=== PATIENT | female | born 1950 | race Caucasian/White ===

== ENCOUNTER 2016-11-08 08:12 | Outpatient (CLI) | payer OTHER, BC ==
[~2016-11-08 08:12] MED LIST: ALPRAZOLAM ER2 MG PO; CARBIDOPA/LEVOD1 TA5 PO; CEFTIN500 MG PO; COLACE100 MG PO; HYCET1 ML PO; PAROXETINE HCL20 MG PO; PRADAXA150 MG PO
--- NOTE | 2016-11-08 10:24 | DIAGNOSTIC IMAGING REPORT ---
PROCEDURE: MG BILATERAL SCREENING W/CAD INDICATION: SCREENING TECHNIQUE: Bilateral CC and MLO digital views. COMPARISON: Compared to 11/12/2014, 11/05/2013, and 11/07/2012. FINDINGS: Computer-aided detection applied. Mildly dense parenchymal pattern. There has been placement of a 5 cm x 1 cm electronic device overlying the upper inner left breast (reported heart monitor) which obscures some of the detail in this region. No evidence of mass or suspicious calcification. IMPRESSION: 1. Negative mammogram. RESULT CODE: 1- Negative. A. A negative report should not delay biopsy if a dominant or clinically suspicious mass is present. 10-15% of cancers are not identified by x-ray. B. A negative report may reinforce clinical impression. C. Adenosis and dense breasts may obscure an underlying neoplasm. D. False positive reports average 6-10%. E.. A yearly screening mammogram is recommended. A reminder letter will be scheduled.
== END 2016-11-08 23:00 ==
LOC: MAM SRH 08:12
DX: Z12.31 Encounter for screening mammogram for malignant neoplasm of breast (principal)